=== PATIENT | female | born 1995 | race Caucasian/White ===

== ENCOUNTER 2017-07-19 19:44 | Emergency (ER) | payer MEDICAID | END 2017-07-20 00:35 | disposition home or self-care (01) | LOC: E/R 07-20 00:35 | DX: S41.141A Puncture wound with foreign body of right upper arm, initial encounter (principal); F17.210 Nicotine dependence, cigarettes, uncomplicated; W46.0XXA Contact with hypodermic needle, initial encounter; Y92.9 Unspecified place or not applicable | CPT/HCPCS: 73080; 73080-RT; 99283-25 ==

== ENCOUNTER 2017-08-23 22:29 | Inpatient (IN) | payer MEDICAID ==
[2017-08-24] MEDS: SODIUM CHLORIDE 0.9% 1L BAG IV* (00:24)
[2017-08-24] MEDS: PIPER-TAZO 3.375 GM IV (PMX) 100 ML IVPB ×4 (00:24→17:24)
[2017-08-24 00:28] LABS: ADD MAN DIFF? NO
[2017-08-24 00:30] LABS: ABNORMAL IP MESSAGE 1; BASOPHILS % 0.3 % (0.0-2.0); EOSINOPHILS % 0.3 % (0.0-7.0); HEMATOCRIT 28.3 % (37.0-47.0); HEMOGLOBIN 9.3 g/dl (12.0-16.0); LYMPHOCYTES # 2.6 10^3/ul (0.8-2.9); LYMPHOCYTES % 16.5 % (15.0-51.0); MEAN CORPUSCULAR HEMOGLOBIN 27.1 pg (29.0-33.0); MEAN CORPUSCULAR HGB CONC 32.9 g/dl (32.0-37.0); MEAN CORPUSCULAR VOLUME 82.5 fl (82.0-101.0); MEAN PLATELET VOLUME 9.2 fl (7.4-10.4); MONOCYTE # 1.8 10^3/ul (0.3-0.9); MONOCYTES % 11.8 % (0.0-11.0); NEUTROPHIL # 10.9 10^3/ul (1.6-7.5); NEUTROPHILS % 70.6 % (39.0-77.0); PLATELET COUNT 386 10^3/UL (140-415); RED BLOOD COUNT 3.43 10^6/ul (4.20-5.40); RED CELL DISTRIBUTION WIDTH 12.2 % (11.5-14.5)
[2017-08-24 00:30] LABS: WHITE BLOOD COUNT 15.5 10^3/ul (4.8-10.8)
[2017-08-24 00:49] LABS: INR 1.31; PROTIME 16.5 Sec (11.9-14.9); PT RATIO 1.3
[2017-08-24 00:50] LABS: PARTIAL THROMBOPLASTIN TIME 38.3 Sec (25.0-35.0)
[2017-08-24 00:51] LABS: ALANINE AMINOTRANSFERASE 18 IU/L (13-69); ALBUMIN 3.7 g/dl (3.3-4.9); ALBUMIN/GLOBULIN RATIO 1.02; ALKALINE PHOSPHATASE 97 IU/L (42-121); ANION GAP 14 (8-16); ASPARTATE AMINO TRANSFERASE 16 IU/L (15-46); BILIRUBIN,INDIRECT 0.3 mg/dl (0-1.1); BILIRUBIN,TOTAL 0.3 mg/dl (0.2-1.3); BLOOD UREA NITROGEN 7 mg/dl (7-20); CALCIUM 8.7 mg/dl (8.4-10.2); CARBON DIOXIDE 26 mmol/L (21-31); CHLORIDE 101 mmol/L (97-110); CREATININE 0.59 mg/dl (0.44-1.00); GLUCOSE 112 mg/dl (70-220); POTASSIUM 3.2 mmol/L (3.5-5.1); SODIUM 138 mmol/L (135-144); TOTAL PROTEIN 7.3 g/dl (6.1-8.1)
[2017-08-24 00:54] LABS: POSITIVE DIFF @See below
[2017-08-24 00:55] LABS: ADD UMIC YES; UR ASCORBIC ACID NEGATIVE (NEGATIVE); UR BACTERIA FEW /HPF (NONE SEEN); UR BILIRUBIN (Dip) 1+ mg/dL (NEGATIVE); UR BLOOD (Dip) NEGATIVE (NEGATIVE); UR CLARITY SLIGHTLY CLOUDY (CLEAR); UR COLOR AMBER (YELLOW); UR GLUCOSE (Dip) NEGATIVE (NEGATIVE); UR KETONES (Dip) NEGATIVE (NEGATIVE); UR LEUKOCYTE ESTERASE (Dip) TRACE Leu/ul (NEGATIVE); UR MUCUS MANY /HPF (NONE SEEN); UR NITRITE (Dip) NEGATIVE (NEGATIVE); UR RBC 8 /HPF (0-5); UR SPECIFIC GRAVITY (Dip) 1.024 (1.003-1.030); UR SQUAMOUS EPITHELIAL CELL FEW /HPF (FEW); UR TOTAL PROTEIN (Dip) 2+ mg/dl (NEGATIVE); UR UROBILINOGEN (Dip) 2+ mg/dL (NEGATIVE); UR WBC 16 /HPF (0-5)
[2017-08-24 01:02] LABS: TROPONIN-I < 0.010 ng/ml (0.000-0.120)
[2017-08-24] MEDS: SOD CHLORIDE 0.9% 1,000 ML IV ×3 (01:21→21:25)
[2017-08-24] MEDS: VANCOMYCIN 1 GM (PMX) 250 ML IVPB (01:30)
[2017-08-24] MEDS ORDERED: VANCOMYCIN IV PER PHARMACY XX (01:30)
[2017-08-24] MEDS ORDERED: NACL 0.9% 3 ML SYG IV (01:30)
[2017-08-24] MEDS ORDERED: DOCUSATE SODIUM 100 MG CAP PO (01:30)
[2017-08-24] MEDS ORDERED: BISACODYL (EC) 5 MG TAB PO (01:30)
[2017-08-24] MEDS ORDERED: ONDANSETRON 4 MG INJ IV ×3 (01:30→13:00)
[2017-08-24] MEDS: morphine 2 MG INJ IV ×3 (02:43→23:26)
[2017-08-24] MEDS: POTASSIUM CHLORIDE (SR) 20 MEQ TAB PO (02:46)
[2017-08-24 03:31] LABS: ETHANOL < 10.0 mg/dl
[2017-08-24 04:09] LABS: BARBITURATES NEGATIVE (NEGATIVE); BENZODIAZEPINES NEGATIVE (NEGATIVE); CANNABINOIDS NEGATIVE (NEGATIVE); COCAINE NEGATIVE (NEGATIVE); OPIATES POSITIVE (NEGATIVE)
[2017-08-24 04:38] LABS: AMPHETAMINE/METHAMPHETAMINE POSITIVE (NEGATIVE)
[2017-08-24 05:55] LABS: ADD MAN DIFF? NO
[2017-08-24 06:02] LABS: WHITE BLOOD COUNT 15.4 10^3/ul (4.8-10.8)
[2017-08-24 06:02] LABS: ABNORMAL IP MESSAGE 1; BASOPHILS % 0.3 % (0.0-2.0); EOSINOPHILS % 0.3 % (0.0-7.0); HEMATOCRIT 29.6 % (37.0-47.0); HEMOGLOBIN 9.5 g/dl (12.0-16.0); LYMPHOCYTES # 2.7 10^3/ul (0.8-2.9); LYMPHOCYTES % 17.8 % (15.0-51.0); MEAN CORPUSCULAR HGB CONC 32.1 g/dl (32.0-37.0); MEAN CORPUSCULAR VOLUME 84.1 fl (82.0-101.0); MEAN PLATELET VOLUME 9.7 fl (7.4-10.4); MONOCYTE # 1.9 10^3/ul (0.3-0.9); MONOCYTES % 12.1 % (0.0-11.0); NEUTROPHIL # 10.6 10^3/ul (1.6-7.5); NEUTROPHILS % 68.9 % (39.0-77.0); PLATELET COUNT 377 10^3/UL (140-415); RED BLOOD COUNT 3.52 10^6/ul (4.20-5.40); RED CELL DISTRIBUTION WIDTH 12.4 % (11.5-14.5)
[2017-08-24 06:19] LABS: LACTIC ACID 1.1 mmol/L (0.5-2.0)
[2017-08-24 06:19] LABS: POSITIVE DIFF @See below
[2017-08-24 06:34] LABS: IRON 16 ug/dl (35-150)
[2017-08-24 06:54] LABS: THYROID STIMULATING HORMONE 0.283 MIU/L (0.465-4.680)
[2017-08-24 07:05] LABS: ALANINE AMINOTRANSFERASE 17 IU/L (13-69); ALBUMIN 3.6 g/dl (3.3-4.9); ALKALINE PHOSPHATASE 113 IU/L (42-121); ANION GAP 13 (8-16); ASPARTATE AMINO TRANSFERASE 22 IU/L (15-46); BILIRUBIN,INDIRECT 0.4 mg/dl (0-1.1); BILIRUBIN,TOTAL 0.4 mg/dl (0.2-1.3); BLOOD UREA NITROGEN 6 mg/dl (7-20); CALCIUM 8.3 mg/dl (8.4-10.2); CARBON DIOXIDE 25 mmol/L (21-31); CHLORIDE 105 mmol/L (97-110); CREATININE 0.58 mg/dl (0.44-1.00); GLUCOSE 91 mg/dl (70-220); MAGNESIUM 1.8 mg/dl (1.7-2.5); POTASSIUM 3.7 mmol/L (3.5-5.1); SODIUM 139 mmol/L (135-144); TOTAL PROTEIN 6.9 g/dl (6.1-8.1)
[2017-08-24 07:06] LABS: ALBUMIN/GLOBULIN RATIO 1.09; CHOL/HDL RATIO 3.6 RATIO; CHOLESTEROL 76 mg/dl (100-200); HDL CHOLESTEROL 21 mg/dl (33-83); LDL CHOLESTEROL,CALCULATED 41 mg/dl; TRIGLYCERIDES 69 mg/dl (0-149)
[2017-08-24 07:07] LABS: % IRON SATURATION 6 % SAT (22-52); TOTAL IRON BINDING CAPACITY 251 ug/dl (241-421)
[2017-08-24 07:18] LABS: HEMOGLOBIN A1C 5.4 % (0-5.9)
[2017-08-24] MEDS: VANCOMYCIN 500MG/NS (PMX) 100 ML IVPB ×2 (09:02→15:52)
[2017-08-24] MEDS: ACETAMINOPHEN 325 MG TAB PO (10:40)
[2017-08-24 10:55] LABS: FERRITIN 86.6 ng/ml (6.2-137.0)
[2017-08-24] MEDS: SOD CHLORIDE 0.9% 100 ML (11:40)
[2017-08-24] MEDS: IOHEXOL 300MG/ML 150 ML BTL (11:41)
[2017-08-24 11:57] LABS: FREE T4 (FREE THYROXINE) 1.21 ng/dl (0.79-2.35)
[2017-08-24] MEDS ORDERED: METOCLOPRAMIDE 10 MG INJ (12:11)
[2017-08-24] MEDS ORDERED: ONDANSETRON 4 MG INJ (12:11)
[2017-08-24] MEDS ORDERED: FENTAnyl 50 MCG/ML VIAL (12:11)
[2017-08-24] MEDS ORDERED: MIDAZOLAM 1 MG/ML 2 ML INJ (12:11)
[2017-08-24] MEDS ORDERED: PROPOFOL 20 ML (12:11)
[2017-08-24] MEDS ORDERED: KETOROLAC 30 MG INJ (12:11)
[2017-08-24] MEDS ORDERED: HYDROmorphONE 1 MG/5 ML IV SYRINGE IV ×2 (12:30)
[2017-08-24] MEDS ORDERED: DIPHENHYDRAMINE 50 MG INJ IV (12:30)
[2017-08-24] MEDS ORDERED: MIDAZOLAM 1 MG/ML 2 ML INJ IV (12:30)
[2017-08-24] MEDS ORDERED: MEPERIDINE 25 MG INJ IV (12:30)
[2017-08-24] MEDS: BUPIVACAINE 0.25%/EPI (MDV) 50 ML VIAL INJ (12:41)
[2017-08-24] MEDS ORDERED: OXYCODONE/ACETAMINOPHEN (5/325) TAB PO (13:00)
[2017-08-24] MEDS ORDERED: morphine 2 MG INJ IV (13:00)
[2017-08-24] MEDS: HYDROmorphONE 1 MG/5 ML IV SYRINGE IV (13:20)
[2017-08-24 15:28] LABS: C-REACTIVE PROTEIN 14.6 mg/dl (0.0-0.9)
[2017-08-24 15:58] LABS: ERYTHROCYTE SEDIMENTATION RATE 56 mm/Hr (0-20)
[2017-08-25] MEDS: PIPER-TAZO 3.375 GM IV (PMX) 100 ML IVPB ×4 (00:36→17:35)
[2017-08-25 01:32] LABS: VANCOMYCIN,TROUGH 6.5 ug/ml (10.0-20.0)
[2017-08-25] MEDS: VANCOMYCIN 500MG/NS (PMX) 100 ML IVPB (01:40)
[2017-08-25 05:33] LABS: ADD MAN DIFF? NO
[2017-08-25 05:40] LABS: WHITE BLOOD COUNT 9.6 10^3/ul (4.8-10.8)
[2017-08-25 05:40] LABS: BASOPHILS % 0.2 % (0.0-2.0); EOSINOPHILS # 0.3 10^3/ul (0.0-0.5); EOSINOPHILS % 2.6 % (0.0-7.0); HEMATOCRIT 26.5 % (37.0-47.0); HEMOGLOBIN 8.6 g/dl (12.0-16.0); LYMPHOCYTES % 20.5 % (15.0-51.0); MEAN CORPUSCULAR HEMOGLOBIN 27.2 pg (29.0-33.0); MEAN CORPUSCULAR HGB CONC 32.5 g/dl (32.0-37.0); MEAN CORPUSCULAR VOLUME 83.9 fl (82.0-101.0); MEAN PLATELET VOLUME 9.7 fl (7.4-10.4); MONOCYTE # 0.8 10^3/ul (0.3-0.9); MONOCYTES % 7.9 % (0.0-11.0); NEUTROPHIL # 6.6 10^3/ul (1.6-7.5); NEUTROPHILS % 68.4 % (39.0-77.0); PLATELET COUNT 363 10^3/UL (140-415); RED BLOOD COUNT 3.16 10^6/ul (4.20-5.40); RED CELL DISTRIBUTION WIDTH 12.6 % (11.5-14.5)
[2017-08-25] MEDS: VANCOMYCIN 750 MG in SOD CHLORIDE 0.9% 150 ML IVPB ×3 (06:25→23:11)
[2017-08-25 06:37] LABS: PHOSPHORUS 3.4 mg/dl (2.5-4.9)
[2017-08-25 06:37] LABS: MAGNESIUM 1.8 mg/dl (1.7-2.5)
[2017-08-25 06:48] LABS: ANION GAP 14 (8-16); BLOOD UREA NITROGEN 6 mg/dl (7-20); CALCIUM 8.3 mg/dl (8.4-10.2); CARBON DIOXIDE 21 mmol/L (21-31); CHLORIDE 111 mmol/L (97-110); CREATININE 0.45 mg/dl (0.44-1.00); GLUCOSE 93 mg/dl (70-220); SODIUM 142 mmol/L (135-144)
[2017-08-25] MEDS: SOD CHLORIDE 0.9% 1,000 ML IV ×2 (07:21→14:55)
[2017-08-25] MEDS: morphine 2 MG INJ IV (08:02)
[2017-08-25] MEDS: OXYCODONE/ACETAMINOPHEN (5/325) TAB PO (09:11)
[2017-08-26] MEDS: PIPER-TAZO 3.375 GM IV (PMX) 100 ML IVPB ×2 (01:15→06:17)
[2017-08-26] MEDS: morphine 2 MG INJ IV (01:47)
[2017-08-26] MEDS: SOD CHLORIDE 0.9% 1,000 ML IV ×3 (03:21→13:21)
[2017-08-26 06:20] LABS: ADD MAN DIFF? NO
[2017-08-26 06:30] LABS: WHITE BLOOD COUNT 7.9 10^3/ul (4.8-10.8)
[2017-08-26 06:30] LABS: BASOPHILS % 0.5 % (0.0-2.0); EOSINOPHILS # 0.7 10^3/ul (0.0-0.5); EOSINOPHILS % 8.7 % (0.0-7.0); HEMATOCRIT 25.9 % (37.0-47.0); HEMOGLOBIN 8.1 g/dl (12.0-16.0); LYMPHOCYTES # 3.4 10^3/ul (0.8-2.9); LYMPHOCYTES % 42.7 % (15.0-51.0); MEAN CORPUSCULAR HEMOGLOBIN 26.5 pg (29.0-33.0); MEAN CORPUSCULAR HGB CONC 31.3 g/dl (32.0-37.0); MEAN CORPUSCULAR VOLUME 84.6 fl (82.0-101.0); MEAN PLATELET VOLUME 10.1 fl (7.4-10.4); MONOCYTE # 0.7 10^3/ul (0.3-0.9); MONOCYTES % 8.5 % (0.0-11.0); NEUTROPHIL # 3.1 10^3/ul (1.6-7.5); NEUTROPHILS % 39.3 % (39.0-77.0); PLATELET COUNT 386 10^3/UL (140-415); RED BLOOD COUNT 3.06 10^6/ul (4.20-5.40); RED CELL DISTRIBUTION WIDTH 12.9 % (11.5-14.5)
[2017-08-26] MEDS: VANCOMYCIN 750 MG in SOD CHLORIDE 0.9% 150 ML IVPB (06:52)
[2017-08-26 06:56] LABS: PHOSPHORUS 3.5 mg/dl (2.5-4.9)
[2017-08-26 06:56] LABS: MAGNESIUM 1.8 mg/dl (1.7-2.5)
[2017-08-26 07:10] LABS: ANION GAP 13 (8-16); BLOOD UREA NITROGEN 5 mg/dl (7-20); CALCIUM 8.3 mg/dl (8.4-10.2); CARBON DIOXIDE 23 mmol/L (21-31); CHLORIDE 111 mmol/L (97-110); CREATININE 0.53 mg/dl (0.44-1.00); GLUCOSE 87 mg/dl (70-220); POTASSIUM 3.8 mmol/L (3.5-5.1); SODIUM 143 mmol/L (135-144)
[2017-08-26] MEDS ORDERED: morphine LIQ (10 MG/5 ML) CUP PO (14:30)
== END 2017-08-26 15:35 | disposition left against medical advice (07) | DRG 872 ==
LOC: E/R 22:29 → MS2 08-24 02:15
PROC: 0H9BXZZ Drainage of Right Upper Arm Skin, External Approach (ICD-10-PCS; principal; 2017-08-24 12:14)
DX: A41.9 Sepsis, unspecified organism (principal); L03.113 Cellulitis of right upper limb; L02.413 Cutaneous abscess of right upper limb; N39.0 Urinary tract infection, site not specified; F15.10 Other stimulant abuse, uncomplicated; D64.9 Anemia, unspecified; F11.10 Opioid abuse, uncomplicated; F17.200 Nicotine dependence, unspecified, uncomplicated
CPT/HCPCS: 36415; 71045; 73090-RT; 73200; 76536; 80048; 80053; 80061; 80202; 80307; 81001; 82728; 83036; 83540; 83605; 83735; 84100; 84439; 84443; 84484; 84703; 85025; 85610; 85651; 85730; 86140; 87040; 87070; 87075; 87086; 93005; 99285-25